=== PATIENT | male | born 1995 | race Caucasian/White ===

== ENCOUNTER 2022-10-17 09:38 | Emergency (ER) | payer OTHER, SELFPAY ==
[2022-10-17 09:41] VITALS: BP 183/109; PULSE 106; RESP 18; TEMP 37.4; O2SAT 98; BMI 34.5
--- NOTE | 2022-10-17 10:02 | ED_ITS ---
HPI - General Adult General Chief complaint: General Medical Stated complaint: sore throat. cant eat or drink Time Seen by Provider: 10/17/22 09:47 Source: patient Mode of arrival: ambulatory Limitations: no limitations History of Present Illness HPI narrative: Patient is otherwise healthy 26-year-old male who presents to the ED today with complaints of sore throat, difficulty swallowing, and hoarseness. He states his symptoms started on Saturday and have worsened since. He is unable to tolerate PO solids and liquids with his last oral intake being 2 days ago. He went to his school's clinic yesterday and was tested for Strep and Covid both of which were negative. He was advised supportive treatment with salt water gargles which he has tried without relief. He has also tried Theraflu and nasal decongestants without relief. He denies any fevers, chills, fatigue, rhinorrhea, ear pain, dental pain, cough, SOB, abdominal pain, sick contacts, and recent travel. He is UTD on all vaccines. MD complaint: sore throat Onset (ago): day(s) (3) Radiation: non-radiation Severity: severe Pain Consistency: constant Relieving factors: none Exacerbating factors: eating Associated symptoms: denies other symptoms Treatments prior to arrival: other (Salt water gargles, Theraflu) Related Data Previous Rx's Medication Instructions Recorded Magic Mouthwash 5 ml PO TID #240 mL 10/17/22 Diphen/Lido/Antacid 1:1:1 240 mL suspension amoxicillin 875 mg-potassium 1 tab PO BID 10 days #20 tabs 10/17/22 clavulanate 125 mg tablet dexamethasone 6 mg tablet 12 mg PO DAILY #2 tabs 10/17/22 ibuprofen 800 mg tablet 800 mg PO Q8H PRN pain #14 tabs 10/17/22 Allergies Allergy/AdvReac Type Severity Reaction Status Date / Time No Known Allergies Allergy Verified 10/17/22 09:44 Review of Systems Review of Systems: Constitutional : No Weight loss, No Fever, No Chills, No Night Sweats, No Fatigue, No Malaise ENT/Mouth : + Sore throat, + hoarseness, + difficulty swallowing. No Hearing loss, No Ear Pain, No Nasal Congestion, No Sinus Pain, No Rhinorrhea Eyes: No Eye Pain, No Swelling, No Redness, No Foreign Body, No Discharge, No Vision Changes Cardiovascular : No SOB, no Dyspnea on Exertion, No Orthopnea, No Edema, No extremity swelling, No Palpitations Respiratory : No Cough, No Sputum, No Wheezing, No Dyspnea Gastrointestinal : No Nausea, No Vomiting, No Diarrhea, No abdominal Pain, No Hematochezia, No Melena Genitourinary : No irregular bleeding, No Dysuria, No Urinary Frequency, No Hematuria, No Urinary Incontinence, No Urgency, No Flank Pain, No Urinary Flow Changes, No Hesitancy Musculoskeletal : No joint pain, No Myalgias, No Joint Swelling Skin : No Skin Lesions, No rash Neuro : No Weakness, No Numbness, No Paresthesias, No Loss of Consciousness, No Dizziness, No Headache Psych : No Anxiety/Panic, No Depression, No SI/HI/AH/VH Heme/Lymph: No Bruising, No Bleeding,No Lymphadenopathy Endocrine : No Polyuria, No Polydipsia, No Temperature Intolerance Yes all other systems are reviewed and are negative [facility] Past Medical History Attestation statement: The following information was validated with the patient. Source: old records reviewed, obtained from family and nursing notes reviewed Social History Social History Advance Directives: No Advance Directives Information Provided: No Physical Exam ED Vital Signs: Vital Signs - 24 hr 10/17/22 09:41 Temperature 99.3 F Pulse Rate 106 H Respiratory Rate 18 Blood Pressure 183/109 H Pulse Oximetry 98 Oxygen Delivery Method Room Air BMI result Body Mass Index 34.5 vital signs have been reviewed as normal and appeared to be correct. Blood pressure normal. Heart rate normal. Respiration rate normal. Temperature normal. Oxygen saturation normal. Appearance: Alert. Oriented X3. No acute distress. Head: Normal external exam. Normocephalic. Atraumatic. Eyes: PERRLA. EOMI. Conjunctiva and sclera normal. Eyelids normal. ENT: EAC normal. TM's Normal. Tonsils erythematous, non-edematous bilaterally. 2 aphthous ulcers on the right tonsil. Uvula midline. Moist mucous membranes. No lesions/ulcerations or masses noted on the tongue. No trismus noted. No drooling noted. No muffled voice noted. Neck: Normal inspection. Neck supple. FROM. Anterior cervical AIME bilaterally. Thyroid Normal. No tracheal deviation noted. No meningeal signs. No neck mass noted. No signs of trauma noted. CVS: Normal heart rate and rhythm. Heart sound normal. Pulses normal throughout. No murmurs/rales/gallops. Respiratory: No respiratory distress. Painless inspiration. Breath sounds normal. No wheezes/rales/rhonchi noted. Chest nontender. No signs of trauma noted. No accessory muscle usage noted or decreased air movement noted. No signs of trauma. Abdomen: Soft and nontender. Bowel sounds normal in all 4 quadrants. No distention noted. No organomegaly noted. No visible injury noted. Back: Full range of motion noted. Skin: Skin warm and dry. Normal skin color. Normal skin turgor. No rashes/lesions/lacerations noted. Extremities: Extremities exhibit normal range of motion and nontender. Neuro: Oriented X 3. No focal neuro deficits noted. Vascular: + 2 radial pulses. Normal cap refill. Course Course Course Narrative: Patient is otherwise healthy 26-year-old male who presents to the ED today with complaints of sore throat, difficulty swallowing, and hoarseness. Pt currently afebrile, hypertensive and mildly tachy most likely secondary to pain. Tonsils erythematous, non-edematous bilaterally. 2 aphthous ulcers on the right tonsil. Uvula midline. Anterior cervical AIME bilaterally. Will check for COVID/influenza/RSV, strep A, mono. Low suspicion for [employer], [place] given exam. Order ibuprofen and lidocaine viscous for pain. Reevaluation(s) Reevaluation #1: -COVID and strep A negative. -Branch, RSV pending. -Pt denies any recent oral intercourse, STIs, multiple partners. Given presence of ulcers, will order viral culture for herpes pharyngitis. Time: 10:45 Medications Administered Discontinued Medications Generic Name Dose Route Start Last Admin Trade Name Freq PRN Reason Stop Dose Admin Amoxicillin/Clavulanate Potassium 875 mg 10/17/22 10:58 10/17/22 11:03 Amoxicillin/Potassium Clav 875 Mg Tablet PO 10/17/22 10:59 875 mg ONCE ONE Administration Ibuprofen 800 mg 10/17/22 10:03 10/17/22 10:27 Ibuprofen 800 Mg Tablet PO 10/17/22 10:04 800 mg ONCE ONE Administration Lidocaine HCl 15 ml 10/17/22 10:03 10/17/22 10:27 Lidocaine Hcl Viscous 2 % 15 Ml Solution MUCOUS MEM 10/17/22 10:04 15 ml ONCE ONE Administration Medical Decision Making Medical Records Medical records reviewed: Yes I reviewed the patient's medical records. Lab Data Lab results reviewed: Yes I reviewed the patient's lab results. Labs: Lab Results 10/17/22 10/17/22 Range/Units 09:47 09:47 COVID-19 (TAMMIE) Negative (Negative) COVID-19 Clin Com See Note S. pyogenes GrpA LAUREL Negative (Negative) Discharge Plan Discharge Clinical Impression: Pharyngitis, Canker sore Patient Disposition: Home, Self-Care Instructions: Pharyngitis (ED), Canker Sores (ED) Additional Instructions: You have pending lab results. If any are positive you will be contacted within 5-7 days. If you are not contacted that means all results were negative. You can see your results on the patient portal. Return if any new or worsening symptoms. Follow up with your primary care provider. Prescriptions: New amoxicillin-pot clavulanate 875-125 mg tablet 1 tab PO BID 10 Days Qty: 20 0RF dexamethasone 6 mg tablet 12 mg PO DAILY Qty: 2 0RF Magic Mouthwash Diphen/Lido/Antacid 1:1:1 240 mL suspension 5 ml PO TID Qty: 240 0RF Rx Instructions: Lidocaine Viscous 2 % 80mL; diphenhydramine 12.5 mg/5 mL 80mL; aluminum-mag hydrox-simeth [id number]-[id number]-70fs/5mL 80mL ibuprofen 800 mg tablet 800 mg PO Q8H PRN (Reason: pain) Qty: 14 0RF Referrals: Physician,None [Primary Care Provider] - (your pcp) Stand Alone Forms: Work/School Release
[2022-10-17 10:06] LABS: Strep A Nucleic Acid Negative (Negative)
[2022-10-17 10:09] LABS: COVID-19 Test Negative (Negative); IDNOW Serial# BCCEAD1C
[2022-10-17] MEDS: Lidocaine HCl Viscous 2 % 15 ML SOLUTION MUCOUS MEM (10:27)
[2022-10-17] MEDS: Ibuprofen 800 MG TABLET PO (10:27)
[2022-10-17] MEDS: Amoxicillin/Potassium Clav 875 MG TABLET PO (11:03)
[2022-10-17 11:25] LABS: Monotest Negative (Negative)
[2022-10-17 11:43] LABS: Influenza A PCR NEGATIVE (Negative); Influenza B PCR NEGATIVE (Negative); Resp Syncy Virus RNA Qual PCR NEGATIVE (Negative); SARS COV2 PCR INHOUSE NEGATIVE (Negative)
== END 2022-10-17 11:19 | disposition home or self-care (01) ==
PROVIDERS: Physician Assistant Medical; Emergency Provider Emergency Medicine Emergency Medical Services
DX: J02.9 Acute pharyngitis, unspecified (principal); K12.0 Recurrent oral aphthae; Z20.822 Contact with and (suspected) exposure to COVID-19
CPT/HCPCS: 0241U; 86308; 87255; 87635; 87651; 99283; 99284